=== PATIENT | female | born 1970 | race Caucasian/White ===

== ENCOUNTER 2018-09-18 03:21 | Emergency (ER) | payer OTHER ==
[~2018-09-18] VITALS: Ht 152.4 cm; Wt 81.4 kg
[2018-09-18 07:00] VITALS: BP 121/74
[2018-09-18] MEDS ORDERED: FAMOTIDINE 20MG TABLET PO ONE (07:00)
== END 2018-09-18 07:13 | disposition home or self-care (01) ==
LOC: ER 03:21
DX: T63.311A Toxic effect of venom of black widow spider, accidental (unintentional), initial encounter (principal); Y92.89 Other specified places as the place of occurrence of the external cause; F17.200 Nicotine dependence, unspecified, uncomplicated; F41.9 Anxiety disorder, unspecified; F32.9 Major depressive disorder, single episode, unspecified
CPT/HCPCS: 99283

== ENCOUNTER 2021-09-20 07:27 | Emergency (ER) | payer OTHER ==
[~2021-09-20] VITALS: Ht 154.9 cm; Wt 100.0 kg
[2021-09-20 09:14] LABS: HEMATOCRIT. 44.7 % (36.0-48.0); HEMOGLOBIN. 15.1 g/dL (12.0-16.0); MEAN CORPUSCULAR HEMOGLOBIN 29.7 pg (28.0-32.0); MEAN PLATELET VOLUME 9.4 fl (7.4-10.4); PLATELET 217 x1000/uL (130-400); RED BLOOD CELL COUNT 5.08 mill/uL (4.2-5.4); RED CELL DISTRIBUTION WIDTH 13.4 % (11.6-14.6)
[2021-09-20 09:23] LABS: CHLORIDE 106 mEq/L (98-107)
[2021-09-20] MEDS ORDERED: NIRM1TAB PO (12:10)
[2021-09-20 12:30] LABS: PLATELET ESTIMATE NORMAL
[2021-09-20 12:48] VITALS: BP 132/76
== END 2021-09-20 13:08 | disposition home or self-care (01) ==
LOC: ER 07:27
DX: U07.1 COVID-19 (principal); F41.9 Anxiety disorder, unspecified; J44.9 Chronic obstructive pulmonary disease, unspecified; F32.A Depression, unspecified
CPT/HCPCS: 36415; 71045; 80053; 84484; 85025; 87426; 93005; 99285; C9803